=== PATIENT | female | born 1955 | race Caucasian/White ===

== ENCOUNTER 2016-05-15 15:16 | Emergency (ER) | payer MEDICARE, MEDICAID ==
[~2016-05-15] VITALS: Ht 149.9 cm; Wt 59.0 kg
[2016-05-15 15:16] VITALS: BP 112/83
[~2016-05-15 15:16] MED LIST: /AMIT25TA PO; /LINE60TA PO; /PRAV20TA OR; AMIT10TA2 OR; ASPI325T OR; BETAXOLOL HCL OU; CALC100T2 PO; CALC500T49 PO; COZA50TA18 OR; KEFL500C7 PO; LASI20TA OR; LUMIGAN OU; MAGN500T2 PO; MYFORTIC PO; NEUR800T OR; PRED5TAB PO; PREV30TA OR; VALCYTE PO; [UNRECOGNIZED DRUG - OTHER] OU; [UNRECOGNIZED DRUG - OTHER] PO
[2016-05-15] MEDS ORDERED: dexameTHASONE 20 MG/5 ML VIAL (J1100) IM ONE (16:15)
== END 2016-05-15 16:45 | disposition home or self-care (01) ==
LOC: M ED 16:35
DX: M25.571 Pain in right ankle and joints of right foot (principal); Z79.899 Other long term (current) drug therapy; Z88.2 Allergy status to sulfonamides; Z88.8 Allergy status to other drugs, medicaments and biological substances; Z79.82 Long term (current) use of aspirin; Z79.52 Long term (current) use of systemic steroids; Z87.891 Personal history of nicotine dependence; J30.9 Allergic rhinitis, unspecified; M54.9 Dorsalgia, unspecified
CPT/HCPCS: 96372; 99281; J1100

== ENCOUNTER 2016-07-13 15:25 | Emergency (ER) | payer MEDICARE, MEDICAID ==
[~2016-07-13] VITALS: Ht 149.9 cm; Wt 59.0 kg
[2016-07-13 15:26] VITALS: BP 133/83
[2016-07-13] MEDS ORDERED: TACR1CAP3 (15:35)
[2016-07-13] MEDS ORDERED: MYCO1TAB (15:35)
[2016-07-13] MEDS ORDERED: TACR0.5C3 (15:35)
[2016-07-13] MEDS ORDERED: predniSONE 20 MG TAB PO ONE (15:45)
[2016-07-13] MEDS ORDERED: PRED10TA PO (15:48)
[2016-07-13] MEDS ORDERED: TYLETAB14 PO (15:48)
== END 2016-07-13 16:01 | disposition home or self-care (01) ==
LOC: M ED 15:48
DX: M54.17 Radiculopathy, lumbosacral region (principal); M54.16 Radiculopathy, lumbar region; M54.31 Sciatica, right side; K21.9 Gastro-esophageal reflux disease without esophagitis; Z94.1 Heart transplant status; Z79.82 Long term (current) use of aspirin; Z79.899 Other long term (current) drug therapy; Z79.52 Long term (current) use of systemic steroids; Z88.8 Allergy status to other drugs, medicaments and biological substances; Z88.2 Allergy status to sulfonamides

== ENCOUNTER 2016-10-10 15:27 | Emergency (ER) | payer MEDICARE, MEDICAID ==
[~2016-10-10] VITALS: Ht 149.9 cm; Wt 61.4 kg
[~2016-10-10 15:27] MED LIST changes: +MYCO1TAB; +PRED10TA2 PO; +TACR0.5C3; +TACR1CAP3; +TYLETAB14 PO
[2016-10-10] MEDS ORDERED: PROG1CAP2 PO ×2 (15:43)
[2016-10-10] MEDS ORDERED: TACR1CAP3 PO (15:43)
[2016-10-10] MEDS ORDERED: dexameTHASONE 4 MG/ML 1ML VIAL (J1100) IV ONE (17:30)
[2016-10-10] MEDS ORDERED: dexameTHASONE 4 MG/ML 1ML VIAL (J1100) IM ONE (17:45)
[2016-10-10 18:04] VITALS: BP 147/87
== END 2016-10-10 18:07 | disposition home or self-care (01) ==
LOC: M ED 15:27
DX: M54.16 Radiculopathy, lumbar region (principal); Z95.0 Presence of cardiac pacemaker; Z95.812 Presence of fully implantable artificial heart; Z88.2 Allergy status to sulfonamides; Z88.8 Allergy status to other drugs, medicaments and biological substances; Z79.82 Long term (current) use of aspirin; Z79.52 Long term (current) use of systemic steroids; Z79.899 Other long term (current) drug therapy
CPT/HCPCS: 96374; 99282; J1100

== ENCOUNTER → 2016-12-12 | Outpatient (REF) | payer MEDICARE, MEDICAID ==
[~2016-12-12] MED LIST changes: +PROG1CAP2 PO; +TACR1CAP3 PO
== END ==
LOC: M LAB REF 13:12
PROVIDERS: ATTEND Physician Assistant Medical
DX: N39.0 Urinary tract infection, site not specified (principal)

== ENCOUNTER → 2017-07-15 | Outpatient (CLI) | payer MEDICARE, MEDICAID | LOC: M RAD 12:40 | DX: R92.2 Inconclusive mammogram (principal); Z94.1 Heart transplant status; E78.5 Hyperlipidemia, unspecified; Z48.298 Encounter for aftercare following other organ transplant | CPT/HCPCS: 76642 ==

== ENCOUNTER 2017-12-16 15:45 | Emergency (ER) | payer MEDICARE, MEDICAID ==
[2017-12-16] MEDS: dexameTHASONE 20 MG/5 ML VIAL (J1100) IM (19:36)
== END 2017-12-16 20:06 | disposition home or self-care (01) ==
LOC: M ED 15:45
DX: M54.17 Radiculopathy, lumbosacral region (principal); M79.671 Pain in right foot; I51.89 Other ill-defined heart diseases; I10 Essential (primary) hypertension; Z79.82 Long term (current) use of aspirin; Z79.899 Other long term (current) drug therapy; Z88.2 Allergy status to sulfonamides; Z88.8 Allergy status to other drugs, medicaments and biological substances
CPT/HCPCS: J1100

== ENCOUNTER → 2018-01-11 | Outpatient (CLI) | payer MEDICARE, MEDICAID ==
[2018-01-11 10:36] LABS: BASO # 0.1 10^3/uL (0.0-0.2); EOS # 0.3 10^3/uL (0.0-0.50); EOS % 2.9 % (0.0-3.0); HEMATOCRIT 41.9 % (36.0-47.0); HEMOGLOBIN 12.9 g/dl (12.0-15.5); IMMATURE GRANULOCYTE % 0.3 % (0-3.0); LYMPH # 3.6 10^3/uL (1.5-4.5); LYMPH % 36.8 % (24.0-44.0); MEAN CORPUSCULAR HEMOGLOBIN 28.4 pg (27.0-33.0); MEAN CORPUSCULAR HGB CONC 30.8 g/dl (32.0-36.5); MEAN CORPUSCULAR VOLUME 92.3 fl (80.0-96.0); MONO # 0.8 10^3/uL (0.0-0.8); MONO % 7.7 % (0.0-5.0); NEUTROPHILS # 5.1 10^3/uL (1.8-7.7); NEUTROPHILS % 51.3 % (36.0-66.0); PLATELET COUNT, AUTOMATED 251 10^3/uL (150-450); RED BLOOD COUNT 4.54 10^6/uL (4.00-5.40); RED CELL DISTRIBUTION WIDTH 13.2 % (11.5-14.5); WHITE BLOOD COUNT 9.9 10^3/uL (4.0-10.0)
[2018-01-11 10:45] LABS: PROTHROMBIN TIME 14.4 SECONDS (12.1-14.4)
[2018-01-11 10:46] LABS: PARTIAL THROMBOPLASTIN TIME 30.1 SECONDS (25.4-37.6)
[2018-01-11 10:57] LABS: CPK CREATINE PHOSPHOKINASE 61 U/L (26-192)
[2018-01-11 11:07] LABS: ALBUMIN 3.9 GM/DL (3.2-5.2); ALBUMIN/GLOBULIN RATIO 1.34 (1.00-1.93); ALKALINE PHOSPHATASE 56 U/L (45-117); ALT/SGPT 19 U/L (12-78); ANION GAP 7 MEQ/L (8-16); AST/SGOT 14 U/L (7-37); BILIRUBIN,DIRECT < 0.1 MG/DL (0.0-0.2); BILIRUBIN,TOTAL 0.3 MG/DL (0.2-1.0); BLOOD UREA NITROGEN 35 MG/DL (7-18); CALCIUM LEVEL 9.7 MG/DL (8.8-10.2); CARBON DIOXIDE LEVEL 26 MEQ/L (21-32); CHLORIDE LEVEL 107 MEQ/L (98-107); CHOLESTEROL LEVEL 184 MG/DL (<200); CHOLESTEROL RISK RATIO 3.407 (<5); CPK CREATINE PHOSPHOKINASE 61 U/L (26-192); CREATININE FOR GFR 1.19 MG/DL (0.55-1.30); FREE T3 2.8 PG/ML (2.2-4.0); FREE T4 1.25 NG/DL (0.76-1.46); GAMMA GLUTAMYLTRANSPEPTIDASE 17 U/L (5-55); GLOMERULAR FILTRATION RATE 49.3 (>45); GLUCOSE, FASTING 83 MG/DL (70-100); HDL CHOLESTEROL 54 MG/DL (>40); LDH LACTATE DEHYDROGENASE 209 U/L (84-246); LDL CHOLESTEROL 99 MG/DL (<100); MAGNESIUM LEVEL 1.7 MG/DL (1.8-2.4); NON-HDL-C 130 MG/DL; PHOSPHORUS LEVEL 4.6 MG/DL (2.5-4.9); POTASSIUM SERUM 5.4 MEQ/L (3.5-5.1); SODIUM LEVEL 140 MEQ/L (136-145); THYROXINE (T4) 10.2 UG/DL (4.5-12.0); TOTAL 25(OH) VITAMIN D 15.6 NG/ML (30.0-100.0); TOTAL PROTEIN 6.8 GM/DL (6.4-8.2); TRIGLYCERIDES LEVEL 154 MG/DL (<150); URIC ACID 6.7 MG/DL (2.6-6.0)
[2018-01-11 12:11] LABS: ESTIMATED AVERAGE GLUCOSE 146 MG/DL (60-110); HEMOGLOBIN A1c 6.7 %
[2018-01-14 00:42] LABS: CMV QUANT DNA PCR (PLASMA) Negative (Negative); IMMUNE CELL FUNCTION 466 ng/mL ATP (.)
[2018-01-15 08:19] LABS: FK 506 (TACROLIMUS) LABCORP 5.3 ng/mL (2.0-20.0); MYCOPHENOLIC ACID GLUCURONIDE 174 ug/mL (15-125); MYCOPHENOLIC ACID SERUM 8.6 ug/mL (1.0-3.5)
[2018-01-21 16:06] LABS: HLA TYPING (23A-49B +8C LOCUS) SEE SEPARATE REPORT
== END ==
LOC: M EKG 09:17
DX: I25.811 Atherosclerosis of native coronary artery of transplanted heart without angina pectoris (principal); I10 Essential (primary) hypertension; M10.9 Gout, unspecified; Z94.1 Heart transplant status
CPT/HCPCS: 71046

== ENCOUNTER → 2018-03-08 | Outpatient (REF) | payer MEDICARE, MEDICAID ==
[~2018-03-08] MED LIST changes: +CYCL10TA PO; +NAPR-50 PO
[2018-03-08 17:34] LABS: INFLUENZA A AMPLIFICATION NEGATIVE (NEGATIVE); INFLUENZA B AMPLIFICATION NEGATIVE (NEGATIVE)
== END ==
LOC: M LAB REF 16:33
PROVIDERS: ATTEND Physician Assistant Medical
DX: J11.1 Influenza due to unidentified influenza virus with other respiratory manifestations (principal)

== ENCOUNTER 2020-01-18 16:30 | Inpatient (IN) | payer MEDICARE, MEDICAID ==
[2020-01-18] VITALS (8 sets, daily range): BP systolic 129–159; BP diastolic 75–95
[~2020-01-18] VITALS: Ht 149.9 cm; Wt 47.1 kg
[~2020-01-18 16:30] MED LIST changes: -/AMIT25TA PO; -/LINE60TA PO; -/PRAV20TA OR; +AMIT1TAB11 PO; +CYCL-707 PO; -CYCL10TA PO; -NAPR-50 PO; +NAPR-837 PO; +PRAV1TAB39 OR; +PROG1CAP11 PO; -PROG1CAP2 PO; +ZYVO100T PO
[2020-01-18] MEDS ORDERED: CLOP75TA2 PO (17:07)
[2020-01-18] MEDS ORDERED: OMEP-218 PO ×2 (17:07→19:17)
[2020-01-18] MEDS ORDERED: MYCO1TAB PO (17:07)
[2020-01-18 17:31] LABS: HEMATOCRIT 21.3 % (36.0-47.0); LYMPH # 0.6 10^3/uL (1.5-5.0); LYMPH % 25.7 % (24.0-44.0); MEAN CORPUSCULAR HEMOGLOBIN 26.6 pg (27.0-33.0); MEAN CORPUSCULAR HGB CONC 29.6 g/dl (32.0-36.5); MEAN CORPUSCULAR VOLUME 89.9 fl (80.0-96.0); MONO % 0.9 % (0.0-5.0); NEUTROPHILS # 1.7 10^3/uL (1.5-8.5); PLATELET COUNT, AUTOMATED 120 10^3/uL (150-450); RED BLOOD COUNT 2.37 10^6/uL (4.00-5.40); WHITE BLOOD COUNT 2.3 10^3/uL (4.0-10.0)
[2020-01-18 17:34] LABS: HEMOGLOBIN 6.3 g/dl (12.0-15.5)
[2020-01-18 17:49] LABS: CALCIUM LEVEL 8.1 MG/DL (8.8-10.2); CREATININE FOR GFR 2.35 MG/DL (0.55-1.30); GLOMERULAR FILTRATION RATE 22.3 (>45); POTASSIUM SERUM 4.4 MEQ/L (3.5-5.1)
[2020-01-18] MEDS ORDERED: FOLI1TAB11 PO (19:17)
[2020-01-18] MEDS ORDERED: TACR1CAP3 PO (19:17)
[2020-01-18] MEDS ORDERED: MYFO180T PO (19:17)
[2020-01-18] MEDS ORDERED: PRAV80TA2 PO (19:17)
[2020-01-18] MEDS ORDERED: VALC450T PO (19:17)
[2020-01-18] MEDS ORDERED: TIMO0.5S39 OU (19:17)
[2020-01-18] MEDS ORDERED: PLAV1TAB2 PO (19:17)
[2020-01-18] MEDS ORDERED: PRED25TA PO (19:17)
[2020-01-18] MEDS ORDERED: ASPI81TA26 PO (19:17)
[2020-01-18] MEDS ORDERED: LOSA50TA88 PO (19:17)
[2020-01-18] MEDS ORDERED: BIMA01SOL OU (19:17)
[2020-01-18] MEDS ORDERED: MAALOX 30 ML SUSP *UDC PO PRN (19:45)
[2020-01-18] MEDS ORDERED: ACETAMINOPHEN TAB 650MG DOSE (2X325MG) PO PRN (19:45)
[2020-01-18] MEDS ORDERED: MOM 30ML SUSPENSION UDC PO PRN (19:45)
[2020-01-18] MEDS ORDERED: NS 1,000 ML IV SCH (19:45)
[2020-01-18 20:22] LABS: PHOSPHORUS LEVEL 2.8 MG/DL (2.5-4.9)
[2020-01-18 20:31] LABS: INR 1.19; PROTHROMBIN TIME 15.4 SECONDS (12.5-14.3)
[2020-01-18 20:32] LABS: PARTIAL THROMBOPLASTIN TIME 30.6 SECONDS (24.2-38.5)
[2020-01-18 20:34] LABS: PTH INTACT 244.6 PG/ML (18.5-88.0)
[2020-01-18] MEDS ORDERED: PRAVASTATIN 20 MG TAB PO SCH (21:00)
[2020-01-18] MEDS ORDERED: LOSARTAN 50MG TABLET PO SCH (21:00)
--- NOTE | 2020-01-18 21:32 | HPEPDOC ---
[facility] Medical History & Physical Date of Admission Jan 18, 2020 Date of Service: Jan 18, 2020 Primary Care Physician: Geetha Sousa PA-C Attending Physician: ALY WRIGHT MD History and Physical TIME OF SERVICE: 8:05 PM CHIEF COMPLAINT: Sent by Specialist from [facility] HISTORY OF PRESENT ILLNESS: This is a 64-year-old female with a history of heart transplant about 20 years ago who is tacrolimus. As a result she has developed several complications including pancytopenia, hypertension, CKD (recent Cr was 2.14), tachycardia and heart block requiring a pacemaker. Despite residing in [facility], her Specialists are located in [facility]. Every couple of weeks she gets blood work drawn Lab Cheryl and her Specialist follow up on the results. She received a call today to come to the hospital because her hemoglobin dropped from 12 to 6.2. She denied having dizziness, chest pain, change in her chronic shortness of breath, being told that she looks more pale than usual, having any blood when she brushes her teeth, blood in the stools, or blood in her urine. talked with her specialist who recommended admission for PRBCs and stopping the transplant meds. The patient confirmed that she stopped taking Tacrolimus last Thursday. 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 HOME MEDICATIONS: Please see below. PHYSICAL EXAMINATION: VITAL SIGNS: Please see below. GEN: well-nourished / well developed/ NAD INTEGUMENT: not flushed/ not jaundice / has mild generalized palor HEENT: lips acyanotic /mucus membranes moist and pink CVS: RRR/NMRG/ radial and dorsalis pedis pulses intact / no lower extremity edema LUNGS: able to speak full sentences without stopping to take a breath / no coughing / lungs are clear to auscultation bilaterally on room air ABDOMEN: Contour (flat ) MSK/EXTREMITIES: NCAT / range of motion intact in all 4 extremities NEURO: CN 2-12 are grossly intact / speech is not dysarthric PSYCH: alert and oriented to person place and time/ able to understand and follow all commands LABORATORY DATA: See below. MICROBIOLOGY: Please see below. ASSESSMENT: Ms. Parham is a 64 -year-old with a history of viral cardiomyopathy requiring heart transplant, HTN, heart block with pacemaker, chronic pancytopenia, & CKD who was sent by her Specialists for management of acute anemia. PLAN: 1. Acute worsening of Tacrolimus induced pancytopenia Her ANC is 1679 Plan: admit to medical floor / c/w 3 units of PRBCs & f/u CBC in the AM 2. Tacrolimus induced CKD w secondary hyperparathyroidism Cr close to baseline Plan: f/u w BMP 3. 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 Tacrolimus induced hypertension Plan: Losartan 5. Dyslipidemia Plan: pravastatin DVT PROPHYLAXIS: Lovenox DISPOSITION: home after more than 2 midnight's stay Vital Signs Vital Signs Date Time Temp Pulse Resp B/P (MAP) Pulse Ox O2 Delivery O2 Flow Rate FiO2 01/18/20 20:57 101 20 138/75 (96) 100 Room Air 01/18/20 20:08 99.3 Laboratory Data Labs 24H Laboratory Tests 2 01/18/20 17:02: Immature Granulocyte % (Auto) 0.4, Neutrophils (%) (Auto) 73.0H, Lymphocytes (%) (Auto) 25.7, Monocytes (%) (Auto) 0.9, Eosinophils (%) (Auto) 0.0, Basophils (%) (Auto) 0.0, Neutrophils # (Auto) 1.7, Lymphocytes # (Auto) 0.6L, Monocytes # (Auto) 0.0, Eosinophils # (Auto) 0.0, Basophils # (Auto) 0.0, Nucleated Red Blood Cells % (auto) 0.0, Prothrombin Time 15.4H, Prothromb Time International Ratio 1.19, Activated Partial Thromboplast Time 30.6, Anion Gap 10, Glomerular Filtration Rate 22.3L, Calcium Level 8.1L, Phosphorus Level 2.8, Parathyroid Hormone (Intact) 244.6H 01/18/20 19:08: Coronavirus (COVID-19)(PCR) NEGATIVE CBC/BMP Laboratory Tests 01/18/20 17:02 Home Medications Scheduled Aspirin (Aspirin EC) 81 Mg Tablet.dr, 81 MG PO DAILY Bimatoprost (Lumigan) 0.01% 2.5ML Drops, 1 DROP OU QHS Clopidogrel Bisulfate (Plavix) 75 Mg Tablet, 75 MG PO DAILY Folic Acid (Folic Acid) 1 Mg Tablet, 1 MG PO DAILY Losartan Potassium (Losartan Potassium) 50 Mg Tablet, 50 MG PO BID Omeprazole (Omeprazole) 20 Mg Capsule.dr, 20 MG PO DAILY Pravastatin Sodium (Pravastatin Sodium) 80 Mg Tablet, 80 MG PO QHS Prednisone (Prednisone) 2.5 Mg Tablet, 2.5 MG PO DAILY Timolol Maleate (Timolol Maleate) 0.5% 5ML Drop.daily, 1 DROP OU BID Valganciclovir HCl (Valcyte) 450 Mg Tablet, 450 MG PO BID Allergies Coded Allergies: Sulfa (Sulfonamide Antibiotics) (Verified Allergy, Unknown, hives, 01/18/20) allopurinol (Verified Allergy, Unknown, pain, electrolyte imbalance, 01/18/20) colchicine (Verified Allergy, Unknown, muscle atrophy, 01/18/20) A-FIB/CHADSVASC A-FIB History Current/History of A-Fib/PAF?: No Current PO Anticoag Therapy: No ALY WRIGHT MD Jan 18, 2020 21:32
[2020-01-19] VITALS (11 sets, daily range): BP systolic 127–156; BP diastolic 80–90
[2020-01-19 08:17] LABS: HEMATOCRIT 35.5 % (36.0-47.0); MEAN CORPUSCULAR HEMOGLOBIN 27.3 pg (27.0-33.0); MEAN CORPUSCULAR HGB CONC 31.3 g/dl (32.0-36.5); MEAN CORPUSCULAR VOLUME 87.4 fl (80.0-96.0); PLATELET COUNT, AUTOMATED 111 10^3/uL (150-450); RED BLOOD COUNT 4.06 10^6/uL (4.00-5.40); WHITE BLOOD COUNT 3.1 10^3/uL (4.0-10.0)
[2020-01-19 08:19] LABS: HEMOGLOBIN 11.1 g/dl (12.0-15.5)
[2020-01-19 08:34] LABS: CALCIUM LEVEL 8.1 MG/DL (8.8-10.2); CREATININE FOR GFR 1.9 MG/DL (0.55-1.30); GLOMERULAR FILTRATION RATE 28.5 (>45); POTASSIUM SERUM 4.1 MEQ/L (3.5-5.1)
[2020-01-19] MEDS ORDERED: FLUBLOK(EGG FREE)(QUAD)INFLUENZA VACC 0.5ML SYRINGE 18YRS & OLDER IM ONE (09:00)
[2020-01-19] MEDS ORDERED: predniSONE 2.5 MG TAB PO SCH (09:00)
[2020-01-19] MEDS ORDERED: FOLIC ACID 1 MG TAB PO SCH (09:00)
[2020-01-19] MEDS ORDERED: ASPIRIN 81 MG ENTERIC TAB PO SCH (09:00)
[2020-01-19] MEDS ORDERED: OMEPRAZOLE 20 MG CAP PO SCH (09:00)
[2020-01-19] MEDS ORDERED: CLOPIDOGREL 75 MG TAB PO SCH (09:00)
--- NOTE | 2020-01-19 09:23 | DS.PDOC ---
Discharge Summary General Date of Admission Jan 18, 2020 at 19:38 Date of Discharge 01/19/2020 Attending Physician: ENIO GAMING MD Discharge Summary PROCEDURES PERFORMED DURING STAY: None ADMITTING DIAGNOSES: 1. 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 HISTORY OF PRESENT ILLNESS: 64-year-old woman with a history of heart transplant in 2004 after viral induced cardiomyopathy who follows at [facility] with a cardiac transplant surgeon, with a known history of rejection, on rejection meds c/b tacrolimus induced multiple co-morbidities including marrow suppression with resultant pancytopenia, who presents per the direction of her transplant surgeon specifically for blood transfusion for anemia, with the goal to follow up at [facility] thereafter. Every couple of weeks she gets blood work drawn Lab Cheryl and her Specialist follow up on the results. She received a call on the day of admission to come to the hospital because her hemoglobin dropped from 12 to 6.2. She denied having dizziness, chest pain, change in her chronic shortness of breath, being told that she looks more pale than usual, having any blood when she brushes her teeth, blood in the stools, or blood in her urine. (ED) talked with her cardiac transplant surgeon who recommended admission for PRBCs and stopping the transplant meds. The patient confirmed that she stopped taking Tacrolimus last Thursday. HOSPITAL COURSE: She was transfused 3u pRBCs overnight and her Hgb appropriately responded and is 11.1 now and feels well and ready for home discharge. Plan will be per her transplant surgeon who has already ordered follow up labs as an outpatient and will follow up closely with her. DISCHARGE MEDICATIONS: Please see below. ALLERGIES: Please see below. PHYSICAL EXAMINATION ON DISCHARGE: VITAL SIGNS: Please see below. GEN: well-nourished / well developed/ NAD INTEGUMENT: not flushed/ not jaundice / has mild generalized palor HEENT: lips acyanotic /mucus membranes moist and pink CVS: RRR/NMRG/ radial and dorsalis pedis pulses intact / no lower extremity edema LUNGS: able to speak full sentences without stopping to take a breath / no coughing / lungs are clear to auscultation bilaterally on room air ABDOMEN: Contour (flat ) MSK/EXTREMITIES: NCAT / range of motion intact in all 4 extremities NEURO: CN 2-12 are grossly intact / speech is not dysarthric PSYCH: alert and oriented to person place and time/ able to understand and follow all commands LABORATORY DATA: Please see below. IMAGING: None PROGNOSIS: Good ACTIVITY: As tolerated DIET: 2g sodium DISCHARGE PLAN: Home with scheduled follow up with transplant surgeon at [facility] as well as PCP within 7d. DISPOSITION: Home DISCHARGE INSTRUCTIONS: 1. Home with scheduled follow up with transplant surgeon at [facility] as well as PCP within 7d. ITEMS TO FOLLOWUP ON ON OUTPATIENT: 1. Heart transplant close follow up 2. Pancytopenia DISCHARGE CONDITION: Stable TIME SPENT ON DISCHARGE: 36 minutes. Vital Signs/I&Os Vital Signs Date Time Temp Pulse Resp B/P (MAP) Pulse Ox O2 Delivery O2 Flow Rate FiO2 01/19/20 09:03 104 139/81 01/19/20 06:55 98.6 16 98 Room Air I&O- Last 24 Hours up to 6 AM 01/19/20 06:00 Intake Total 1600 ml Output Total 550 ml Balance 1050 ml Laboratory Data Labs 24H Laboratory Tests 2 01/18/20 17:02: Immature Granulocyte % (Auto) 0.4, Neutrophils (%) (Auto) 73.0H, Lymphocytes (%) (Auto) 25.7, Monocytes (%) (Auto) 0.9, Eosinophils (%) (Auto) 0.0, Basophils (%) (Auto) 0.0, Neutrophils # (Auto) 1.7, Lymphocytes # (Auto) 0.6L, Monocytes # (Auto) 0.0, Eosinophils # (Auto) 0.0, Basophils # (Auto) 0.0, Nucleated Red Blood Cells % (auto) 0.0, Prothrombin Time 15.4H, Prothromb Time International Ratio 1.19, Activated Partial Thromboplast Time 30.6, Anion Gap 10, Glomerular Filtration Rate 22.3L, Calcium Level 8.1L, Phosphorus Level 2.8, Parathyroid Hormone (Intact) 244.6H 01/18/20 19:08: Coronavirus (COVID-19)(PCR) NEGATIVE 01/19/20 07:59: Nucleated Red Blood Cells % (auto) 0.0, Anion Gap 9, Glomerular Filtration Rate 28.5L, Calcium Level 8.1L CBC/BMP Laboratory Tests 01/18/20 17:02 01/19/20 07:59 Discharge Medications Scheduled Aspirin (Aspirin EC) 81 Mg Tablet.dr, 81 MG PO DAILY, (Reported) Bimatoprost (Lumigan) 0.01% 2.5ML Drops, 1 DROP OU QHS, (Reported) Clopidogrel Bisulfate (Plavix) 75 Mg Tablet, 75 MG PO DAILY, (Reported) Folic Acid (Folic Acid) 1 Mg Tablet, 1 MG PO DAILY, (Reported) Losartan Potassium (Losartan Potassium) 50 Mg Tablet, 50 MG PO BID, (Reported) Omeprazole (Omeprazole) 20 Mg Capsule.dr, 20 MG PO DAILY, (Reported) Pravastatin Sodium (Pravastatin Sodium) 80 Mg Tablet, 80 MG PO QHS, (Reported) Prednisone (Prednisone) 2.5 Mg Tablet, 2.5 MG PO DAILY, (Reported) Timolol Maleate (Timolol Maleate) 0.5% 5ML Drop.daily, 1 DROP OU BID, (Reported) Valganciclovir HCl (Valcyte) 450 Mg Tablet, 450 MG PO BID, (Reported) Allergies Coded Allergies: Sulfa (Sulfonamide Antibiotics) (Verified Allergy, Unknown, hives, 01/18/20) allopurinol (Verified Allergy, Unknown, pain, electrolyte imbalance, 01/18/20) colchicine (Verified Allergy, Unknown, muscle atrophy, 01/18/20) ENIO GAMING MD Jan 19, 2020 09:23
[2020-01-19 12:55] LABS: APPEARANCE, URINE CLEAR (CLEAR); BACTERIA, URINE AUTO NEGATIVE (NEGATIVE); BILIRUBIN, URINE AUTO NEGATIVE (NEGATIVE); BLOOD, URINE BLOOD NEGATIVE (NEGATIVE); COLOR, URINE YELLOW (YELLOW); GLUCOSE, URINE (UA) AUTO NEGATIVE (NEGATIVE); KETONE, URINE AUTO NEGATIVE (NEGATIVE); LEUKOCYTE ESTERASE, URINE AUTO NEGATIVE (NEGATIVE); NITRITE, URINE AUTO NEGATIVE (NEGATIVE); PROTEIN, URINE AUTO 1+ mg/dL (NEGATIVE); RBC, URINE AUTO 0 /HPF (0-3); SPECIFIC GRAVITY URINE AUTO 1.012 (1.002-1.035); SQUAMOUS EPITHELIAL CELL UR AU 0 /HPF (0-6); UROBILINOGEN, URINE AUTO 0.2 mg/dL (0.0-2.0); WBC, URINE AUTO 0 /HPF (0-3)
[2020-01-19 13:29] LABS: CREATININE, URINE 64.1 MG/DL; TOTAL PROTEIN,RANDOM URINE 43.4 MG/DL (0.0-12.0)
[2020-01-19 13:35] LABS: CREATININE 12 HR URINE 352.5 MG/12HR (300-750)
[2020-01-20] MEDS ORDERED: ValGANciclovir HYDROCHLORIDE 450MG TABLET PO SCH (08:00)
== END 2020-01-19 10:32 | disposition home or self-care (01) | DRG 809 ==
LOC: M ED 16:30 → M ED INP 19:38 → ENRESERV 20:30 → M MSPAV 21:09
PROVIDERS: ADMIT Internal Medicine; ATTEND Internal Medicine
PROC: 30233N1 Transfusion of Nonautologous Red Blood Cells into Peripheral Vein, Percutaneous Approach (ICD-10-PCS; principal; 2020-01-18)
DX: D61.811 Other drug-induced pancytopenia (principal); Z94.1 Heart transplant status; I12.9 Hypertensive chronic kidney disease with stage 1 through stage 4 chronic kidney disease, or unspecified chronic kidney disease; N18.9 Chronic kidney disease, unspecified; R00.0 Tachycardia, unspecified; Z79.82 Long term (current) use of aspirin; Z79.899 Other long term (current) drug therapy; Z88.2 Allergy status to sulfonamides; Z88.8 Allergy status to other drugs, medicaments and biological substances; M10.9 Gout, unspecified; K21.9 Gastro-esophageal reflux disease without esophagitis; E78.5 Hyperlipidemia, unspecified; T50.3X5A Adverse effect of electrolytic, caloric and water-balance agents, initial encounter

== ENCOUNTER → 2020-02-12 | Outpatient (CLI) | payer SELFPAY ==
[~2020-02-12] MED LIST changes: +ASPI81TA26 PO; +BIMA01SOL OU; +CLOP75TA2 PO; +FOLI1TAB11 PO; +LOSA50TA88 PO; +MYCO1TAB PO; +MYFO180T PO; +OMEP-218 PO; +PLAV1TAB2 PO; +PRAV80TA2 PO; +PRED25TA PO; +TIMO0.5S39 OU; +VALC450T PO
== END ==
LOC: M LABSMTC 09:55
PROVIDERS: ATTEND Pediatrics
DX: Z20.828 Contact with and (suspected) exposure to other viral communicable diseases (principal)

== ENCOUNTER → 2020-02-20 | Outpatient (CLI) | payer SELFPAY | LOC: M LABSMTC 10:31 | PROVIDERS: ATTEND Pediatrics | DX: Z20.828 Contact with and (suspected) exposure to other viral communicable diseases (principal) ==

== ENCOUNTER → 2020-10-03 | Outpatient (CLI) | payer MEDICARE, MEDICAID ==
--- NOTE | 2020-10-03 14:59 | DEXAMM ---
INDICATION: OSTEOPOROSIS, HEART TRANSPLANT. COMPARISON: None. TECHNIQUE: Bone density was measured using dual-energy x-ray absorptionmetry (DEXA). FINDINGS: AP SPINE L1-L4 BMD 1.0 g/cm2 Young Adult T-Score -1.5 Age Matched Z-Score -0.1. LT FEMUR, TOTAL BMD 0.651 g/cm2 Young Adult T-Score -2.8 Age Matched Z-Score -1.8. LT NECK BMD 0.732 g/cm2 Young Adult T-Score -2.2 Age Matched Z-Score -0.8. RT FEMUR, TOTAL BMD 0.574 g/cm2 Young Adult T-Score -3.4 Age Matched Z-Score -2.4. RT NECK BMD 0.665 g/cm2 Young Adult T-Score -2.7 Age Matched Z-Score -1.3. IMPRESSION: There is low bone density of the spine. There is low bone density of the left hip. There is low bone density of the right hip. . FOLLOW-UP: Recommendation for the next bone density exam: 2 years. <Electronically signed by Ilan Pierre > 10/03/20 [id number]
== END ==
LOC: M WHC 13:41
DX: M81.0 Age-related osteoporosis without current pathological fracture (principal); Z94.1 Heart transplant status

== ENCOUNTER → 2020-11-23 | Outpatient (CLI) | payer MEDICARE, MEDICAID | LOC: M LABSMTC 10:37 | PROVIDERS: ATTEND Internal Medicine | DX: Z20.822 Contact with and (suspected) exposure to COVID-19 (principal) ==

== ENCOUNTER → 2021-12-12 | Outpatient (CLI) | payer MEDICARE, MEDICAID ==
[~2021-12-12] MED LIST changes: +ALBUTEROL 90 MCG/ACT 8GM HFA INHALER INH PRN; +ALBUTEROL SULFATE 2.5 MG/0.5 ML INH NEB SOLN INH PRN; +BEBTELOVIMAB 175MG 2ML VIAL (EUA) IV ONE; +EPINEPHrine INJ 1 MG/ML 1ML AMP IM PRN; +LOSA50TA28 PO; -LOSA50TA88 PO; +OMEP-173 PO; -OMEP-218 PO; +diphenhydrAMINE 50MG/ML VIAL (J1200) IV PRN; +methylPREDNISolone 125MG 2ML VIAL IV PRN
[2021-12-12 15:00] VITALS: BP 147/78
[2021-12-12 16:01] VITALS: BP 136/82
== END ==
LOC: M OPCLI4PR 14:30
PROVIDERS: ATTEND Registered Nurse
DX: U07.1 COVID-19 (principal); Z88.2 Allergy status to sulfonamides; Z88.1 Allergy status to other antibiotic agents

== ENCOUNTER → 2022-06-12 | Outpatient (CLI) | payer MEDICARE, MEDICAID ==
[~2022-06-12] MED LIST changes: -ALBUTEROL 90 MCG/ACT 8GM HFA INHALER INH PRN; -ALBUTEROL SULFATE 2.5 MG/0.5 ML INH NEB SOLN INH PRN; -BEBTELOVIMAB 175MG 2ML VIAL (EUA) IV ONE; +CLOP75TA99 PO; -EPINEPHrine INJ 1 MG/ML 1ML AMP IM PRN; -PLAV1TAB2 PO; -diphenhydrAMINE 50MG/ML VIAL (J1200) IV PRN; -methylPREDNISolone 125MG 2ML VIAL IV PRN
== END ==
LOC: M SOG 07:56
PROVIDERS: ATTEND Physician Assistant
DX: M79.641 Pain in right hand (principal)

== ENCOUNTER → 2022-08-13 | Outpatient (REF) | payer MEDICARE, MEDICAID ==
[2022-08-13 17:29] LABS: APPEARANCE, URINE CLOUDY (CLEAR); BACTERIA, URINE AUTO 1+ (NEGATIVE); BILIRUBIN, URINE AUTO NEGATIVE (NEGATIVE); BLOOD, URINE BLOOD 2+ (NEGATIVE); COLOR, URINE AMBER (YELLOW); GLUCOSE, URINE (UA) AUTO NEGATIVE (NEGATIVE); KETONE, URINE AUTO TRACE mg/dL (NEGATIVE); LEUKOCYTE ESTERASE, URINE AUTO 3+ (NEGATIVE); MUCUS, URINE SMALL (NEGATIVE); NITRITE, URINE AUTO NEGATIVE (NEGATIVE); PROTEIN, URINE AUTO 2+ mg/dL (NEGATIVE); RBC, URINE AUTO 102 /HPF (0-3); SPECIFIC GRAVITY URINE AUTO 1.016 (1.002-1.035); SQUAMOUS EPITHELIAL CELL UR AU 2 /HPF (0-6); UROBILINOGEN, URINE AUTO 0.2 mg/dL (0.0-2.0); WBC, URINE AUTO TNTC /HPF (0-3)
== END ==
LOC: M LAB REF 16:12
PROVIDERS: ATTEND Physician Assistant
DX: N39.0 Urinary tract infection, site not specified (principal)

== ENCOUNTER → 2023-01-27 | Outpatient (CLI) | payer MEDICARE, MEDICAID ==
[~2023-01-27] MED LIST changes: +ATOR1TAB19 PO; +FURO20TA2 PO; +LISI10TA22 PO; +MYFO360T PO; +PRED1TABL PO
== END ==
LOC: M SOG 08:13
PROVIDERS: ATTEND Physician Assistant
DX: M79.645 Pain in left finger(s) (principal)

== ENCOUNTER → 2023-01-30 | Outpatient (CLI) | payer MEDICARE, MEDICAID | LOC: M SOG 07:56 | PROVIDERS: ATTEND Physician Assistant | DX: M25.511 Pain in right shoulder (principal) ==

== ENCOUNTER → 2023-12-25 | Outpatient (REF) | payer MEDICARE, MEDICAID | LOC: M LAB REF 20:38 | PROVIDERS: ATTEND Physician Assistant | DX: J02.9 Acute pharyngitis, unspecified (principal) ==

== ENCOUNTER → 2024-01-26 | Outpatient (REF) | payer MEDICARE, MEDICAID ==
[2024-01-26 22:16] LABS: APPEARANCE, URINE MANUAL CLOUDY (CLEAR); COLOR, URINE MANUAL ORANGE (YELLOW)
[2024-01-26 22:17] LABS: BILIRUBIN, URINE MANUAL OBSCURED (NEGATIVE); BLOOD URINE MANUAL OBSCURED (NEGATIVE); GLUCOSE, URINE (UA) MANUAL OBSCURED mg/dL (NEGATIVE); KETONE, URINE MANUAL OBSCURED mg/dL (NEGATIVE); LEUKOCYTE ESTERASE, URINE MAN OBSCURED (NEGATIVE); NITRITE, URINE MANUAL OBSCURED (NEGATIVE); PH,URINE MAN OBSCURED UNITS (5.0 - 7.0); PROTEIN, URINE MANUAL OBSCURED mg/dL (NEGATIVE); UROBILINOGEN, URINE MANUAL OBSCURED mg/dl (NORMAL)
[2024-01-26 22:24] LABS: SQUAMOUS EPITHELIAL CELL URINE MOD AMOUNT /hpf (SMALL AMT); WBC, URINE TNTC /hpf (0-3)
[2024-01-26 22:25] LABS: BACTERIA, URINE LARGE AMOUNT; TRANSITIONAL EPI CELLS, URINE SMALL AMOUNT /hpf
[2024-01-26 22:28] LABS: HYALINE CAST, URINE NONE SEEN /lpf (0-1); MUCUS, URINE SMALL AMOUNT (NEGATIVE)
== END ==
LOC: M LAB REF 21:28
PROVIDERS: ATTEND Physician Assistant Medical
DX: N39.0 Urinary tract infection, site not specified (principal)